=== PATIENT | male | born 1965 | race African-American/Black ===

== ENCOUNTER 2018-09-16 06:52 | Outpatient (CLI) | payer OTHER ==
--- NOTE | 2018-09-16 08:52 | Cat Scan Report ---
CT CHEST WITHOUT CONTRAST INDICATION / CLINICAL INFORMATION: Left upper lobe mass/scar. TECHNIQUE: Axial CT images were obtained through the chest without contrast. Sagittal and coronal reformatted im ages. All CT scans at this location are performed using CT dose reduction for ALARA by means of autom ated exposure control. COMPARISON: None available. FINDINGS: HEART: No significant abnormality. THORACIC AORTA: No significant abnormality. MEDIASTINUM and RAQUEL: There are multiple mildly enlarged lymph nodes in the right paratracheal chain, subcarinal chain and probably the left hilar chain. A precarinal lymph node measures 2.8 x 2.3 cm. A subcarinal lymph node measures 2.9 x 1.8 cm. The thyroid gland trachea and esophagus are unremarkabl e. LUNGS: There is a moderate size area of consolidation in the medial left upper lobe measuring up to 1 0.2 x 5.6 cm in axial plane. The left upper lobe bronchus appears compressed or occluded. There are a pproximately 8-10 small airspace densities in the right upper lobe measuring up to 1.5 cm. The lower lung zones are clear. No underlying parenchymal lung disease is appreciated. PLEURA: No significant pleural effusion. No pneumothorax. SKELETAL SYSTEM: No significant abnormality. UPPER ABDOMEN: No significant abnormality. ADDITIONAL FINDINGS: None. IMPRESSION: Multiple enlarged mediastinal lymph nodes are identified. Bilateral upper lobe airspace opacities ar e identified. There is a large consolidation in the medial left upper lobe as described above. Small airspace densities are identified in the right upper lobe. This appears inflammatory in nature but I certainly cannot rule out a left suprahilar mass or adenopathy. CT chest with contrast may provide ad ditional information. Signer Name: Ashwin Ahn Jr, MD Signed: 09/16/2018 8:47 AM Workstation Name: [id number]
== END 2018-09-16 06:53 | disposition home or self-care (01) ==
LOC: CT 06:52
PROVIDERS: ATTEND Specialist
DX: R59.0 Localized enlarged lymph nodes (principal)
CPT/HCPCS: 71250

== ENCOUNTER 2018-10-06 07:15 | Day surgery (SDC) | payer OTHER ==
[2018-10-06] MEDS ORDERED: NACL 0.9% 1000 ML 1,000 ML IV SCH (08:00)
[2018-10-06] MEDS ORDERED: DIPRIVAN 10 MG/ML IV ONE ×2 (08:24→08:36)
[2018-10-06] MEDS ORDERED: LIDOCAINE VISCOUS 2% MM ONE (08:25)
[2018-10-06] MEDS ORDERED: XYLOCAINE 1% 20 mL ONE (08:26)
[2018-10-06] MEDS ORDERED: HURRICAINE ONE 20% TOPICAL SPRAY MM ×2 (08:27→08:30)
[2018-10-06] MEDS ORDERED: LIDOCAINE VISCOUS 2% ONE (08:27)
--- NOTE | 2018-10-06 08:33 | Anesthesia Consultation ---
Anesthesia Consult and Med Hx Date of service: 10/06/18 - Airway Anesthetic Teeth Evaluation: Good ROM Head & Neck: Adequate Mental/Hyoid Distance: Adequate Mallampati Class: Class II Intubation Access Assessment: Probably Good - Pulmonary Exam CTA: No (Diminished in the upper lobes) - Pre-Operative Health Status ASA Pre-Surgery Classification: ASA2 Proposed Anesthetic Plan: MAC - Pulmonary Hx Smoking: Yes Hx Pneumonia: Yes - Cardiovascular System Hx Hypertension: Yes
--- NOTE | 2018-10-06 08:33 | Anesthesia Day of Surgery ---
Anesthesia Day of Surgery - Day of Surgery Patient Examined: Yes Patient H&P Reviewed: Yes Patient is NPO: Yes
[2018-10-06] MEDS ORDERED: XYLOCAINE 2% INFILTRATI ONE (08:43)
--- NOTE | 2018-10-06 09:03 | Procedure Note ---
Date of procedure: 10/06/18 Pre-op diagnosis: Left Upper Lobe Mass Post-op diagnosis: same Procedure: Flexible bronch with bronchial washings and brushings After obtaining informed consent, scope passed through left nare without difficulty. VC seen and good AB as well as AD duction. Lidocaine used x2. Scope then passed into trachea. Lido used. Loan seen and lido used in RMB and LMB. Airway inspection on right revealed abnormal right upper lobe as only 2 segments were present. Scope retracted and entered into LMB. Left lower lobe was normal. Left upper lobe showed narrowing of that and the entrance to the lingula. Friable mucosa, erythematous and angry seen in the left upper lobe. No endobronchial lesion. Brushings and washings taken from there. No active bleeding seen. Watched for 2 minutes. Scope retracted and patient taken to re covery. Anesthesia: MAC Surgeon: ANABELLE VILLASEÑOR Estimated blood loss: none Pathology: list (Left upper lobe washing and brushings) Specimen disposition: to lab Condition: stable Disposition: same day
--- NOTE | 2018-10-06 09:08 | Discharge Summary ---
Providers - Providers Date of Admission: 10/06/18 Date of discharge: 10/06/18 Attending physician: ANABELLE VILLASEÑOR None Primary care physician: BHARATI GREEN Hospitalization Reason for admission: Outpatient bronchoscopy Condition: Good Pertinent studies: Bronchial washings and brushings as well as brush itself sent for cytology Procedures: Bronch with bronchial washing and brushing Hospital course: Tolerated procedure well with no immediate complications Disposition: DC-01 TO HOME OR SELFCARE Core Measure Documentation - Palliative Care Palliative Care/ Comfort Measures: Not Applicable - Core Measures Any of the following diagnoses?: none - VTE Discharge Requirements Deep Vein Thrombosis/Pulmonary Embolism Present on Admission: No Has pt received <5 days of overlap therapy or INR<2.0: No Anticoagulant overlap therapy prescribed at discharge: No Contraindication No Overlap Therapy order at DC: Not Indicated - Acute ID Discharge Requirements Aspirin at discharge: No Reason for no aspirin on DC: Medical contraindication BERE/ARB for LVSD if EF <40%: Not Applicable Reason for no BERE/ARB: Medical contraindication Beta mustapha at discharge: No Reason for no beta mustapha on DC: Medical contraindication Statin for LDL = or >100 mg/dl on DC: Not Applicable Reason for no statin on DC: Patient refusal - Heart Failure Discharge Requirements BERE/ARB for LVSD if EF <40%: Not Applicable Reason for no BERE/ARB: Medical contraindication Beta mustapha at discharge: No Reason for no beta mustapha on DC: Medical contraindication - Stroke Discharge Requirements Statin for LDL = or >70 mg/dl on DC: Not Applicable Exam - Constitutional Vitals: Temp Pulse Resp BP Pulse Ox 98.6 F 100 H 16 100/72 95 10/06/18 08:19 10/06/18 08:19 10/06/18 08:19 10/06/18 08:19 10/06/18 08:19 General appearance: Present: no acute distress, well-nourished - EENT Eyes: Present: PERRL ENT: hearing intact, clear oral mucosa, dentition normal - Neck Neck: Present: supple, normal ROM - Respiratory Respiratory effort: normal Respiratory: bilateral: CTA - Cardiovascular Rhythm: regular Heart Sounds: Present: S1 & S2 - Extremities Extremities: no ischemia - Abdominal General gastrointestinal: Present: soft Male genitourinary: Present: deferred - Rectal Rectal Exam: deferred Plan Activity: other (Do not eat or drink until 3 hours post procedure) Weight Bearing Status: Full Weight Bearing Diet: regular Follow up with: BHARATI GREEN MD [Primary Care Provider] - 7 Days
[2018-10-06 09:55] VITALS: BP 118/63
== END 2018-10-06 07:16 | disposition home or self-care (01) ==
LOC: GIO 07:15
PROVIDERS: ATTEND Specialist
DX: J98.4 Other disorders of lung (principal); R91.8 Other nonspecific abnormal finding of lung field; I10 Essential (primary) hypertension; J18.9 Pneumonia, unspecified organism; Z87.891 Personal history of nicotine dependence
CPT/HCPCS: 31623; 87102; 87116; 88104; 88112; 88312; J2704; J7030